=== PATIENT | male | born 1975 | race Caucasian/White ===

== ENCOUNTER 2017-01-11 06:13 | Observation (INO) | payer OTHER ==
[~2017-01-11] VITALS: Ht 172.7 cm; Wt 107.7 kg
[2017-01-11 07:14] LABS: BASOPHIL % 0.3 % (0-2); PLATELET COUNT 205 x10^3mcL (130-400); RED CELL DISTRIBUTION WIDTH 13.4 % (11.5-14.5)
[2017-01-11 07:29] LABS: CALCIUM 8.7 mg/dL (8.5-10.1); CARBON DIOXIDE 29.6 mmol/L (21-32); CHLORIDE SERUM 103 mmol/L (98-107); CREATININE SERUM 1.1 mg/dL (0.7-1.3); GFR1 > 60 mL/min; GLUCOSE SERUM 111 mg/dL (74-106); POTASSIUM SERUM 4.5 mmol/L (3.5-5.1); SODIUM SERUM 140 mmol/L (136-145)
[2017-01-11 07:33] LABS: ALBUMIN 3.6 g/dL (3.4-5.0); ALKALINE PHOSPHATASE 42 U/L (46-116); ALT/SGPT 73 U/L (16-63); AST/SGOT 32 U/L (15-37); BILIRUBIN TOTAL 0.77 mg/dL (0.20-1.00); TOTAL PROTEIN, SERUM 7.8 g/dL (6.4-8.2)
[2017-01-11 09:43] LABS: MAGNESIUM 2.3 mg/dL (1.8-2.4); PHOSPHOROUS 3.2 mg/dL (2.5-4.9)
[2017-01-11 09:55] LABS: FREE T4 1.22 ng/dL (0.76-1.46); FREE THYROXINE INDEX 3.1 ug/dL (1.4-4.5); T4(THYROXINE) 8.2 ug/dL (4.7-13.3)
[2017-01-11 09:56] LABS: T3 TOTAL 1.17 ng/mL
[2017-01-11 10:45] VITALS: BP 137/92
[2017-01-11 13:08] VITALS: BP 137/92
[2017-01-11 14:12] VITALS: BP 163/92
[2017-01-11 17:35] VITALS: BP 130/82
[2017-01-11 19:08] LABS: microscopic required? YES; urine erythrocyte TRACE (NEGATIVE)
[2017-01-11 20:54] VITALS: BP 139/83
[2017-01-12 06:30] LABS: BASOPHIL % 0.5 % (0-2); PLATELET COUNT 181 x10^3mcL (130-400); RED CELL DISTRIBUTION WIDTH 13.2 % (11.5-14.5)
[2017-01-12 06:31] LABS: CALCIUM 8.5 mg/dL (8.5-10.1); CARBON DIOXIDE 30.1 mmol/L (21-32); CHLORIDE SERUM 105 mmol/L (98-107); CREATININE SERUM 0.8 mg/dL (0.7-1.3); GFR1 > 60 mL/min; GLUCOSE SERUM 106 mg/dL (74-106); POTASSIUM SERUM 4.2 mmol/L (3.5-5.1); SODIUM SERUM 138 mmol/L (136-145)
[2017-01-12 06:53] VITALS: BP 123/82
[2017-01-12 10:08] VITALS: BP 132/80
[2017-01-12] MEDS ORDERED: LIPI10 PO (10:27)
[2017-01-12] MEDS ORDERED: ECO81 PO (10:28)
[2017-01-12] MEDS ORDERED: LANSOPRAZOLE30 M2 PO (10:40)
[2017-01-12 11:56] VITALS: BP 132/80
== END 2017-01-12 13:27 | disposition home or self-care (01) | DRG 392 ==
LOC: ED 06:13 → DU 08:49
PROVIDERS: Emergency Medicine; ADMIT Family Medicine
DX: K21.9 Gastro-esophageal reflux disease without esophagitis (principal); R31.9 Hematuria, unspecified; I10 Essential (primary) hypertension; G47.33 Obstructive sleep apnea (adult) (pediatric); E78.5 Hyperlipidemia, unspecified; E78.1 Pure hyperglyceridemia
CPT/HCPCS: 83880; 84439; 85378; G0378; J3010; J7030; Q0092

== ENCOUNTER 2017-07-19 13:17 | Emergency (ER) | payer OTHER ==
[~2017-07-19] VITALS: Ht 172.7 cm; Wt 108.9 kg
[~2017-07-19 13:17] MED LIST: ECO81 PO; LANSOPRAZOLE30 M2 PO; LIPI10 PO
[2017-07-19 13:29] VITALS: Ht 172.7 cm; Wt 108.9 kg
[2017-07-19 13:56] LABS: BASOPHIL % 0.3 % (0-2); PLATELET COUNT 191 x10^3mcL (130-400); RED CELL DISTRIBUTION WIDTH 13.1 % (11.5-14.5)
[2017-07-19 14:18] VITALS: BP 145/94
[2017-07-19 14:50] LABS: CALCIUM 8.6 mg/dL (8.5-10.1); CHLORIDE SERUM 103 mmol/L (98-107); CREATININE SERUM 0.7 mg/dL (0.7-1.3); GFR1 > 60 mL/min; GLUCOSE SERUM 91 mg/dL (74-106); SODIUM SERUM 139 mmol/L (136-145)
[2017-07-19 14:58] LABS: ALBUMIN 3.6 g/dL (3.4-5.0); ALKALINE PHOSPHATASE 36 U/L (46-116); ALT/SGPT 51 U/L (16-63); AST/SGOT 28 U/L (15-37); BILIRUBIN TOTAL 0.76 mg/dL (0.20-1.00); CHOLESTEROL 205 mg/dL (<200); HDL CHOLESTEROL 51 mg/dL (40-60); PHOSPHOROUS 3.4 mg/dL (2.5-4.9); TOTAL PROTEIN, SERUM 7.6 g/dL (6.4-8.2)
== END 2017-07-19 15:24 | disposition home or self-care (01) ==
LOC: ED 13:17
PROVIDERS: Emergency Medicine
DX: R07.2 Precordial pain (principal); I10 Essential (primary) hypertension
CPT/HCPCS: 36415; 83880; Q0092